=== PATIENT | male | born 1985 | race Caucasian/White ===

== ENCOUNTER 2023-12-23 22:23 | Emergency (ER) | payer BC, OTHER ==
[~2023-12-23] VITALS: Ht 172.7 cm; Wt 71.7 kg
[2023-12-23 23:31] VITALS: BP 141/98; TEMP 98.4
[2023-12-24 02:08] VITALS: O2SAT 98
== END 2023-12-24 02:30 | disposition home or self-care (01) ==
LOC: ER 22:28
DX: S62.603A Fracture of unspecified phalanx of left middle finger, initial encounter for closed fracture (principal); S60.132A Contusion of left middle finger with damage to nail, initial encounter; W23.0XXA Caught, crushed, jammed, or pinched between moving objects, initial encounter; Y93.89 Activity, other specified; Y92.89 Other specified places as the place of occurrence of the external cause; Y99.8 Other external cause status
CPT/HCPCS: 73130-TC